=== PATIENT | female | born 1935 ===

== ENCOUNTER 2017-10-31 17:18 | Emergency (ER) | payer SELFPAY ==
[2017-10-31] MEDS ORDERED: ONDANSETRON 4 MG/2 ML VIAL IVP ONE (17:25)
[2017-10-31] MEDS ORDERED: NITROGLYCERIN 0.4 MG SUBL SL SCH (17:25)
[2017-10-31] MEDS ORDERED: HEPARIN* SOD/D5W 25000 U/500ML 500 ML IV ONE (17:30)
[2017-10-31] MEDS ORDERED: TENECTEPLASE 50 MG KIT IVP ONE (17:30)
[2017-10-31 17:33] LABS: PLATELET COUNT, AUTOMATED 272 K/uL (150-450)
[2017-10-31] MEDS ORDERED: HEPARIN (PORC) 5000 UN/ML VIAL IVP ONE (17:40)
[2017-10-31] MEDS ORDERED: TICAGRELOR 90 MG TABLET PO ONE (17:40)
--- NOTE | 2017-10-31 17:40 | EKG ---
FACILITY: [facility] [place] PATIENT NAME: LILY VALERA : [id number] MR: [id number] V: [id number] EXAM DATE: ORDERING PHYSICIAN: MARTI DE LA ROSA TECHNOLOGIST: JEREMY Jamil Reason : STEMMI Blood Pressure : / mmHG Vent. Rate : 079 BPM Atrial Rate : 079 BPM P-R Int : 190 ms QRS Dur : 086 ms QT Int : 422 ms P-R-T Axes : 066 012 -44 degrees QTc Int : 483 ms Normal sinus rhythm ST elevation, consider anterior injury or acute infarct ACUTE IN Abnormal ECG No previous ECGs available Confirmed by TONEY MARTINEZ ([id number]) on 11/01/2017 2:04:08 PM Referred By: Confirmed By:TONEY MARTINEZ
[2017-10-31 17:41] LABS: INR 1.07
--- NOTE | 2017-10-31 17:46 | ER Report ---
History and Physical Time Seen By MD: 17:30 Hx. of Stated Complaint: chest pain stemi in field HPI/ROS CHIEF COMPLAINT: Chest pain near-syncope HISTORY OF PRESENT ILLNESS: 82-year-old female working at [employer] experiencing some heaviness on her chest and a near-syncopal episode while at work EMS arrived EKG demonstrated ST changes elevations in the precordials and slipped and inverted ST changes and ST depressions in the inferior leads activator S cardiac alert brought her here for evaluation arrival here she describes a heaviness in chest pressure going on for the past hour or so baseline labs cardiac markers have been ordered patient has no past medical history takes no medications no additional complaints noted REVIEW OF SYSTEMS: Respiratory: No cough, no dyspnea. Cardiovascular: Has chest pain or palpitation Gastrointestinal: No vomiting, no abdominal pain. Musculoskeletal: No back pain. Remainder of the 14 system rev: Yes Allergies: Coded Allergies: No Known Drug Allergies (Unverified , 10/31/17) Home Meds No Active Prescriptions or Reported Meds Reviewed Nurses Notes: Yes Old Medical Records Reviewed: Yes Constitutional Vital Sign - Last 24 Hours 10/31/17 17:19 Temp 98.1 Pulse 79 Resp 12 B/P (MAP) 128/82 Pulse Ox 100 O2 Delivery Nasal Cannula Physical Exam General Appearance: The patient is alert, has no immediate need for airway protection and no current signs of toxicity. Appears uncomfortable Eyes: Pupils equal and round no injection. Respiratory: Chest is non tender, lungs are clear to auscultation. Cardiac: regular rate and rhythm [ ] Gastrointestinal: Abdomen is soft and non tender, no masses, bowel sounds normal. Musculoskeletal: Neck: Neck is supple and non tender. Extremities have full range of motion and are non tender. Skin: No rashes or lesions. [ ] DIFFERENTIAL DIAGNOSIS: After history and physical exam differential diagnosis was considered for acute myocardial infarction Medical Decision Making Data Points Result Diagram: 10/31/17 1725 Laboratory Hematology Test 10/31/17 17:25 Red Blood Count 4.40 M/uL (4.17-5.56) Mean Corpuscular Volume 90.1 fL (80.0-96.0) Mean Corpuscular Hemoglobin 31.5 pg (26.0-33.0) Mean Corpuscular Hemoglobin Concent 34.9 g/dL (32.0-36.0) Red Cell Distribution Width 13.0 % (11.5-14.5) Mean Platelet Volume 6.4 fL (7.2-11.1) Neutrophils (%) (Auto) 50.8 % (39.4-72.5) Lymphocytes (%) (Auto) 39.8 % (17.6-49.6) Monocytes (%) (Auto) 7.7 % (4.1-12.4) Eosinophils (%) (Auto) 0.5 % (0.4-6.7) Basophils (%) (Auto) 1.2 % (0.3-1.4) Nucleated RBC Relative Count (auto) 0.0 /100WBC Neutrophils # (Auto) 7.0 K/uL (2.0-7.4) Lymphocytes # (Auto) 5.5 K/uL (1.3-3.6) Monocytes # (Auto) 1.1 K/uL (0.3-1.0) Eosinophils # (Auto) 0.1 K/uL (0.0-0.5) Basophils # (Auto) 0.2 K/uL (0.0-0.1) Nucleated RBC Absolute Count (auto) 0.01 K/uL Chemistry Test 10/31/17 17:25 White Blood Count 13.8 k/uL (4.5-11.0) Red Blood Count 4.40 M/uL (4.17-5.56) Hemoglobin 13.8 g/dL (12.0-16.0) Hematocrit 39.6 % (34.0-47.0) Mean Corpuscular Volume 90.1 fL (80.0-96.0) Mean Corpuscular Hemoglobin 31.5 pg (26.0-33.0) Mean Corpuscular Hemoglobin Concent 34.9 g/dL (32.0-36.0) Red Cell Distribution Width 13.0 % (11.5-14.5) Platelet Count 272 K/uL (150-450) Mean Platelet Volume 6.4 fL (7.2-11.1) Neutrophils (%) (Auto) 50.8 % (39.4-72.5) Lymphocytes (%) (Auto) 39.8 % (17.6-49.6) Monocytes (%) (Auto) 7.7 % (4.1-12.4) Eosinophils (%) (Auto) 0.5 % (0.4-6.7) Basophils (%) (Auto) 1.2 % (0.3-1.4) Nucleated RBC Relative Count (auto) 0.0 /100WBC Neutrophils # (Auto) 7.0 K/uL (2.0-7.4) Lymphocytes # (Auto) 5.5 K/uL (1.3-3.6) Monocytes # (Auto) 1.1 K/uL (0.3-1.0) Eosinophils # (Auto) 0.1 K/uL (0.0-0.5) Basophils # (Auto) 0.2 K/uL (0.0-0.1) Nucleated RBC Absolute Count (auto) 0.01 K/uL Coagulation Test 10/31/17 17:25 ED Course/Re-evaluation ED Course ED clinical course a 82-year-old female no significant past medical history with chest pressure has an ST elevated TX in the anterior precordial leads with ST depressions in the inferior reciprocal changes acute myocardial infarction noted on transfer EKG brought in by EMS confirmed EKG here patient ACS protocol get a bolus of heparin with infusion T NK PERRL into baseline labs including cardiac markers x-ray were performed patient will be transferred to the nearest acute cardiac facility accepted by cardiology and will be taken to the Patient Safety Attendant Decision to Disposition Date: Oct 31, 2017 Decision to Disposition Time: 17:45 Depart Departure Latest Vital Signs Vital Signs Date Time Temp Pulse Resp B/P (MAP) Pulse Ox O2 Delivery O2 Flow Rate FiO2 10/31/17 17:19 98.1 79 12 128/82 100 Nasal Cannula Impression: Primary Impression: Myocardial infarction Condition: Improved Disposition: XFER TO [facility]UTE [facility]ARE [facility]OSP[facility] New Scripts No Active Prescriptions or Reported Meds Patient Instructions: Myocardial Infarction (DC) MELONIE LIZAMA MD Oct 31, 2017 17:46
--- NOTE | 2017-10-31 17:52 | RADIOLOGY IMAGING REPORT ---
FACILITY: [facility] PATIENT NAME: Angela Davey : 1935 MR: [id number] V: [id number] EXAM DATE: ORDERING PHYSICIAN: MARTI DE LA ROSA TECHNOLOGIST: Location: [facility] Patient: Angela Davey : 1935 Visit/Account:[id number] Date of Sevice: 10/31/2017 CHEST SINGLE AP Indication: Chest pain.. Comparison: None available Findings: Cardiomediastinal silhouette and pulmonary vessels within normal limits for the technique. Aorta is m ildly tortuous. There is no focal infiltrate or lobar consolidation. No pneumothorax or pleural effusion. No nodule. Chronic interstitial changes. Upper abdomen is unremarkable. No acute bony abnormality. IMPRESSION: 1. No acute cardiopulmonary process. Report Dictated By: Aric Kraus at 10/31/2017 5:46 PM Report E-Signed By: Aric Kraus at 10/31/2017 5:49 PM WSN:[id number]
--- NOTE | 2017-11-01 16:46 | EKG ---
[place] [facility] [place] LILY VALERA : [id number] MR: [id number] V: [id number] EXAM DATE: ORDERING PHYSICIAN: MELONIE LIZAMA TECHNOLOGIST: JEREMY Jamil Reason : REPEAT Blood Pressure : / mmHG Vent. Rate : 070 BPM Atrial Rate : 070 BPM P-R Int : 194 ms QRS Dur : 132 ms QT Int : 478 ms P-R-T Axes : 056 -27 -28 degrees QTc Int : 516 ms Normal sinus rhythm Right bundle branch block ST elevation consistent with an anterior NM Relatively unchanged Confirmed by TONEY MARTINEZ ([id number]) on 11/01/2017 2:08:19 PM Referred By: DL Confirmed By:TONEY MARTINEZ
--- NOTE | 2017-11-01 16:46 | EKG ---
FACILITY: [facility] [place] PATIENT NAME: LILY VALERA : [id number] MR: [id number] V: [id number] EXAM DATE: ORDERING PHYSICIAN: MELONIE LIZAMA TECHNOLOGIST: JEREMY Jamil Reason : REPEAT Blood Pressure : / mmHG Vent. Rate : 071 BPM Atrial Rate : 071 BPM P-R Int : 192 ms QRS Dur : 132 ms QT Int : 482 ms P-R-T Axes : 050 -32 -14 degrees QTc Int : 523 ms Normal sinus rhythm Left axis deviation Right bundle branch block ST elevation consistent with an ant MD Compared to previous, now with a new RBBB Confirmed by TONEY MARTINEZ ([id number]) on 11/01/2017 2:06:43 PM Referred By: DL Confirmed By:TONEY MARTINEZ
== END 2017-10-31 18:19 | disposition short-term general hospital (02) ==
LOC: ER 17:32
DX: I21.09 ST elevation (STEMI) myocardial infarction involving other coronary artery of anterior wall (principal); R94.31 Abnormal electrocardiogram [ECG] [EKG]; I45.10 Unspecified right bundle-branch block
CPT/HCPCS: 71045; 84484; 85025; 85610; 85730; 93005; 99285; J1644; J2405; J3101; 82040; 82247; 82310; 82374; 82435; 82565; 82947; 84075; 84132; 84155; 84295; 84450; 84460; 84520; 96365; 96375

== ENCOUNTER → 2017-10-31 | Outpatient (CLI) | payer MEDICARE | LOC: AMB 16:52 | PROVIDERS: ATTEND Nurse Practitioner | DX: R07.9 Chest pain, unspecified (principal); R00.1 Bradycardia, unspecified | CPT/HCPCS: A0425; A0427 ==

== ENCOUNTER → 2017-10-31 | Outpatient (CLI) | payer MEDICARE | LOC: AMB 17:42 | PROVIDERS: ATTEND Nurse Practitioner | DX: I21.3 ST elevation (STEMI) myocardial infarction of unspecified site (principal) | CPT/HCPCS: A0425; A0433 ==

== ENCOUNTER 2017-12-11 10:00 | Outpatient (RCR) | payer MEDICARE ==
[2017-11-12 09:38] VITALS: BP 110/74
[2017-11-12 09:39] VITALS: BP 120/74
--- NOTE | 2017-11-13 11:20 | CARDIAC REHAB PLAN OF CARE ---
Physician: Katlyn KELLY Patient is being seen: Elia Sotelo [facility] Diagnosis: Anterior STEMI, Stent x 1 (LAD) Date of Initial Evaluation:11/12/2017 SHORT TERM GOALS Short Term Goals Due Date: 12/13/17 Short Term Goals: 82 year old female phase II patient comes to cardiac rehab following an Anterior STEMI with one stent placed in the LAD. Patient presents as alert and oriented, very pleasant with no orthopedic restrictions to exercise. During exercise SPO2 levels are maintained in the 90's on room air, and the quality assurance monitor body shows NSR with occasional PVC's and rates were up to 85. 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 Patient will also make adjustment in diet to follow a heart healthy diet. Patient currently needs to reduce sugar and refined carb intake. Impregnating Machine Operator Goals Met: [facility] Goals Not Met Due To: PATIENT'S GOALS Patient Goals Due Date: 12/13/17 Patient Goals: Patient goals are to get back to good health prior to cardiac incident. Patient Goals Met: Patient Goals Not Met Due To: Cardiac Rehabilitation Plan of Care Comment: Cardiac rehab staff will monitor, record, and evaluate vitals, ECG, and exercise results to provide the best plan of care during the 36 visit, phase II program. CR staff will educate and motivate the patient during visits for rehab. MAYTE
[2017-11-13 13:26] VITALS: BP 104/64
[2017-11-13 13:27] VITALS: BP 118/67
[2017-11-16 12:52] VITALS: BP 106/60
[2017-11-18 12:57] VITALS: BP 106/62
[2017-11-18 12:58] VITALS: BP 102/60
[2017-11-20 16:57] VITALS: BP 120/72
[2017-11-20 16:58] VITALS: BP 96/62
[2017-11-23 16:54] VITALS: BP 104/62
[2017-11-23 16:55] VITALS: BP 90/62
[2017-11-25 12:35] VITALS: BP_SYST 106; BP_SYST 122; BP_DIAS 54; BP_DIAS 78
[2017-11-27 13:26] VITALS: BP 118/60
[2017-11-27 13:27] VITALS: BP 94/70
[2017-11-30 12:57] VITALS: BP 110/66
[2017-11-30 12:58] VITALS: BP 98/65
[2017-12-02 12:52] VITALS: BP_SYST 118; BP_SYST 120; BP_DIAS 62; BP_DIAS 66
[2017-12-04 16:55] VITALS: BP 122/78
[2017-12-04 16:56] VITALS: BP 100/64
[2017-12-07 13:07] VITALS: BP 118/64
[2017-12-07 13:08] VITALS: BP 110/68
[2017-12-09 17:08] VITALS: BP 120/78
[2017-12-09 17:09] VITALS: BP 120/70
--- NOTE | 2017-12-10 12:42 | CARDIAC REHAB PLAN OF CARE ---
Physician: Katlyn KELLY Patient is being seen: Elia Sotelo Medical Diagnosis: STEMI, Stent x 1 Date of Initial Evaluation: November 12, 2017 SHORT TERM GOALS Short Term Goals Due Date: 01/11/18 Short Term Goals: 82 year old female phase II patient comes to cardiac rehab following an Anterior STEMI with one stent placed in the LAD. Patient presents as alert and oriented, very pleasant with no orthopedic restrictions to exercise. During exercise SPO2 levels are maintained in the 90's on room air, and the meat supervisor shows NSR with occasional PVC's and rates were up to 85. Short Term Goals Met: Patient has completed 13 visits for cardiac rehab and tolerates 45-50 minutes of cardio exercise at a MET level of 2.0-3.0., followed by weight resistance exercise. Patient has gradually increased duration of exercise. Short Term Goals Not Met Due To: Patient has not increased intensity (MET) level and has not increased strength. Patient has also not changed dietary habits. [facility] GOALS [facility] Goal Due Date: 02/10/18 [facility] Goals: [facility] goals are to remain consistent with the exercise protocol and also increase MET levels of exercise. Patient will continue to adjust diet to reduce sugar and refined carbohydrates, and increase healthy proteins and fats. [facility] Goals Met: [facility] Goals Not Met Due To: PATIENT'S GOALS Patient Goals Due Date: 01/11/18 Patient Goals: Patient goals remain to improve health and be able to remain active. Patient Goals Met: Patient has been consistent, and positive with rehab. Patient Goals Not Met Due To: Cardiac Rehabilitation Plan of Care Comment: Cardiac rehab staff will continue to monitor, record, and evaluate vitals, ECG, and exercise results to provide the best plan of care for the patient throughout the 36 visit, phase II program. CR staff will motivate and educate the patient during visits for rehab. MAYTE
[2017-12-11 13:09] VITALS: BP 108/68
[2017-12-11 13:10] VITALS: BP 112/62
== END 2017-12-11 18:00 | disposition home or self-care (01) ==
LOC: CARD 10:00
PROVIDERS: ATTEND Internal Medicine Interventional Cardiology
DX: I25.2 Old myocardial infarction (principal); Z95.5 Presence of coronary angioplasty implant and graft
CPT/HCPCS: 93798